=== PATIENT | female | born 1970 | race Caucasian/White ===

== ENCOUNTER → 2017-01-31 14:33 | Outpatient (CLI) | payer BC | END | disposition home or self-care (01) | LOC: D.US 14:30 | DX: R79.1 Abnormal coagulation profile (principal) ==

== ENCOUNTER → 2017-03-04 16:42 | Outpatient (CLI) | payer BC, MEDICAID | END | disposition home or self-care (01) | LOC: D.MAMMO 13:30 | DX: R92.8 Other abnormal and inconclusive findings on diagnostic imaging of breast (principal) ==

== ENCOUNTER → 2019-01-08 17:45 | Outpatient (CLI) | payer MEDICAID | END | disposition home or self-care (01) | LOC: D.MAMMO 13:15 | PROVIDERS: ATTEND Family Medicine | DX: Z12.31 Encounter for screening mammogram for malignant neoplasm of breast (principal) ==

== ENCOUNTER → 2019-01-26 13:33 | Outpatient (CLI) | payer MEDICAID ==
--- NOTE | ~2019-01-26 | EC ---
PATIENT:SHANTI PITTMAN DATE OF SERVICE: 01/26/19 SEX: F MEDICAL RECORD: [id number] DATE OF : 72 [facility] AGE OF PATIENT: 48 ADMISSION DATE: 01/26/19 REFERRING PHYSICIAN: INTERPRETING PHYSICIAN: SANTINO MAYORGA MD ECHOCARDIOGRAM REPORT ECHO CHARGES 4 ECHO COMPLETE Date: 01/26/19 CLINICAL DIAGNOSIS: SOB ECHOCARDIOGRAPHIC MEASUREMENTS (adult normal given) AC root (d.<3.7cm) 3.3 cm LV Septum d (<1.2 cm> 1.6 cm Valve Excursion 1.4 cm LV Septum (systole) 2.0 cm Left Atria (s.<4.0cm> 3.5 cm LVPW d(<1.2cm) 1.6 cm RV (d.<2.3cm) 3.4 cm LVPW (sytole) 1.9 cm LV diastole(<5.6CM) 4.1 cm MV E-F(>70mm/sec) cm LV systole 1.8 cm LVOT Diameter 1.7 cm MV exc.(>10mm) 1.4 cm Est.ejection fraction (50-75%) % DOPPLER: LVIT cm/sec A 104 cm/sec E 125 cm/sec LA cm/sec RVSP 21 mmHg LVOT 109 cm/sec AOP1/2T m/s Asc. Ao 186 cm/sec RVOT 87 cm/sec RA cm/sec PA 109 cm/sec AV Gradient Peak 13.81mmHg AV Mean 7.83 mmHg AV Area 1.4 cm MV Gradient Peak 5.56 mmHg MV Mean 1.87 mmHg MV Area cm COMMENTS: Parking Manager: 2 VANNESA SALINAS Hand Former: 3 Dr. Busby TAPE# PACS Pericardial Effusion N DATE OF SERVICE: Adequate 2-D, color-flow and spectral Doppler, and M-mode. No LVH. LV internal dimensions are normal. Wall motion is normal. EF is greater than 55%. Aortic valve sclerosis without stenosis by Doppler interrogation. Left atrium is normal. Mitral valve shows no prolapse. Trace MR. Right-sided chambers are grossly normal. Trace TR. TRANSINT:[id number] Voice Confirmation ID: [id number] DOCUMENT ID: [id number] ECHOCARDIOGRAM REPORT [id number] SHANTI PITTMAN SANTINO MAYORGA MD CC: [id number] DICTATION DATE: 01/27/19 1613 LINUX SYSTEM ENGINEER: 01/27/191999 DEP CLI 01/26/19 [place] [id number] [place] [id number]
== END | disposition home or self-care (01) ==
LOC: D.HCCARDIO 13:30
PROVIDERS: ATTEND Internal Medicine Interventional Cardiology
DX: R06.02 Shortness of breath (principal); I20.9 Angina pectoris, unspecified